=== PATIENT | male | born 1985 | race African-American/Black ===

== ENCOUNTER 2024-01-13 16:28 | Emergency (ER) | payer MEDICAID ==
[~2024-01-13] VITALS: Ht 172.7 cm; Wt 70.0 kg
[2024-01-13 16:29] VITALS: TEMP 98.5; O2SAT 98
[2024-01-13 17:44] LABS: CHLORIDE 105 mEq/L (98-107); POTASSIUM 3.9 mEq/L (3.5-5.1); SODIUM 139 mEq/L (136-145)
[2024-01-13 17:45] LABS: CARBON DIOXIDE 26 mEq/L (21-32)
[2024-01-13 17:46] LABS: CALCIUM 9.7 mg/dL (8.7-10.4)
[2024-01-13 17:47] LABS: BASOPHILS % 0.5 % (0.0-2.0); EOSINOPHILS % 1.1 % (0.0-5.0); HEMATOCRIT. 44.1 % (42.0-52.0); HEMOGLOBIN. 14.1 g/dL (14.0-18.0); MEAN CORPUSCULAR HEMOGLOBIN 26.1 pg (28.0-32.0); MEAN CORPUSCULAR HGB CONC 31.9 g/dL (31.0-37.0); MEAN CORPUSCULAR VOLUME 81.9 fL (80.0-94.0); MEAN PLATELET VOLUME 8.1 fl (7.4-10.4); MONOCYTES % 8.5 % (2.0-8.0); NEUTROPHILS % 72.9 % (40.0-76.0); PLATELET 381 x1000/uL (130-400); RED BLOOD CELL COUNT 5.39 mill/uL (4.7-6.1); RED CELL DISTRIBUTION WIDTH 15.4 % (11.6-14.6); WHITE BLOOD COUNT 11.5 x1000/uL (4.5-11.0)
[2024-01-13 17:50] LABS: CREATININE 1.3 mg/dL (0.6-1.3); GLUCOSE 116 mg/dL (70-105)
[2024-01-13 17:51] LABS: TROPONIN I HIGH SENSITIVITY 5 ng/L (3.0-53); UREA NITROGEN BLOOD 11 mg/dL (9-23)
[2024-01-13 17:52] LABS: PROTHROMBIN TIME 10.8 sec (9.6-11.0)
[2024-01-13 20:17] VITALS: BP 141/92; PULSE 93; RESP 15; O2SAT 97
== END 2024-01-13 20:44 | disposition home or self-care (01) ==
LOC: ER 16:28
DX: R07.89 Other chest pain (principal); I50.9 Heart failure, unspecified; I11.0 Hypertensive heart disease with heart failure; Z91.041 Radiographic dye allergy status
CPT/HCPCS: 80048; 83880; 85025; 85610; 84484; 36415; 71045; 93005; 99285; Z7610